=== PATIENT | male | born 1960 | race Caucasian/White ===

== ENCOUNTER 2022-01-31 08:00 | Outpatient (CLI) | payer MEDICAID, OTHER ==
[~2022-01-31] VITALS: Ht 162.6 cm; Wt 102.1 kg
== END 2022-01-31 13:45 | disposition home or self-care (01) ==
LOC: SLB 08:00 → EDSTATUS 02-09 12:30
PROVIDERS: ATTEND Surgery
DX: Z01.812 Encounter for preprocedural laboratory examination (principal); Z12.11 Encounter for screening for malignant neoplasm of colon
CPT/HCPCS: 36415; U0003

== ENCOUNTER 2022-03-30 10:05 | Day surgery (SDC) | payer MEDICAID ==
[~2022-03-30] VITALS: Ht 170.2 cm; Wt 102.1 kg
[2022-03-30] MEDS ORDERED: fentaNYL CITRATE/PF 100 MCG/2 ML AMP ONE (13:35)
[2022-03-30] MEDS ORDERED: PROPOFOL 200MG/ 20ML VIAL (DIPRIVAN) IV ONE (13:35)
[2022-03-30] MEDS ORDERED: MIDAZOLAM HCL 5 MG/ML VIAL (VERSED) IV ONE (13:35)
[2022-03-30] MEDS ORDERED: NS 1000 ML IV.SOLN IV ONE (13:35)
[2022-03-30] MEDS ORDERED: ONDANSETRON HCL 4 MG/2 ML VIAL IVP PRN (15:00)
[2022-03-30] MEDS ORDERED: METOCLOPRAMIDE HCL 10 MG/2 ML VIAL IVP PRN (15:00)
[2022-03-30] MEDS ORDERED: MORPHINE 4 MG INJ. 4 MG/ML VIAL IVP PRN ×3 (15:00)
[2022-03-30 15:30] VITALS: BP_SYST 154
== END 2022-03-30 14:45 | disposition home or self-care (01) ==
LOC: SDS 10:05 → SMU 10:07 → SDS 14:45
PROVIDERS: ATTEND Surgery
DX: Z12.11 Encounter for screening for malignant neoplasm of colon (principal); D12.3 Benign neoplasm of transverse colon; D12.5 Benign neoplasm of sigmoid colon; K64.8 Other hemorrhoids; I10 Essential (primary) hypertension; E11.9 Type 2 diabetes mellitus without complications; E78.5 Hyperlipidemia, unspecified; K21.9 Gastro-esophageal reflux disease without esophagitis; Z86.73 Personal history of transient ischemic attack (TIA), and cerebral infarction without residual deficits; Z20.822 Contact with and (suspected) exposure to COVID-19; Z79.899 Other long term (current) drug therapy
CPT/HCPCS: 36415; 45380; 45385; 82962; 82948; 88305; U0003; G0378; J2250; J2704; J3010; J7030